=== PATIENT | female | born 1955 | race Caucasian/White ===

== ENCOUNTER 2018-10-04 15:28 | Outpatient (REF) | payer OTHER, SELFPAY ==
--- NOTE | 2018-10-04 14:42 | PAPFT_PTH ---
PATIENT: Jyothi Pan LOC: [facility]#:[id number] AGE/SX: 63/F ROOM: RE10/04/[address]: Valentina Doshi : 1955 BED: DIS: 10/04/2018 SPEC #: [id number] RECD: 10/05/18 13:03 STATUS: LULI RECedric #: [id number] ELIDIA: 10/04/18 14:[address]: Valentina Doshi DEPT: [facility] Cytology RECD BY: Michelle Fregoso ENTERED: 10/05/18 13:04 SP TYPE: PAPFT OTHR DR: Ronaldo Moy Tissues: 1 - CX/ENDOCX FOR PAP SMEARS Procedures: PAP THIN PREP/UVM Screening HPV DNA PROBE Comments: [id number]
[2018-10-04 21:23] LABS: CREATININE 0.98 mg/dL (0.55-1.02); Calcium 9.3 mg/dL (8.5-10.1); Estimated GFR 56.96 (mL/min/1.73m2)
== END 2018-10-04 15:48 ==
LOC: NCHCN 15:28
PROVIDERS: PCP Internal Medicine; Visit Provider Internal Medicine
DX: M81.0 Age-related osteoporosis without current pathological fracture (principal); Z12.4 Encounter for screening for malignant neoplasm of cervix; Z11.51 Encounter for screening for human papillomavirus (HPV)
CPT/HCPCS: 88142; 82310; 82565; 87624

== ENCOUNTER 2019-07-24 14:21 | Outpatient (REF) | payer OTHER, SELFPAY ==
[2019-07-24 22:46] LABS: Calculated LDL 184 mg/dL; Cholesterol 271 mg/dL (50-200); HDL Cholesterol 74 mg/dL (40-60); Magnesium 1.9 mg/dL (1.8-2.4); Triglyceride 69 mg/dL (30-150)
[2019-07-24 22:54] LABS: Hemoglobin A1C 6.1 % (4.5-6.2)
== END 2019-07-24 14:41 ==
LOC: NCHCN 14:21
PROVIDERS: PCP Registered Nurse; Visit Provider Registered Nurse
DX: Z00.00 Encounter for general adult medical examination without abnormal findings (principal); E78.5 Hyperlipidemia, unspecified; M81.0 Age-related osteoporosis without current pathological fracture; K21.9 Gastro-esophageal reflux disease without esophagitis
CPT/HCPCS: 80061; 83036; 83735

== ENCOUNTER 2019-09-10 13:11 | Outpatient (REF) | payer OTHER, SELFPAY ==
--- NOTE | 2019-09-10 09:45 | SKI_PTH ---
PATIENT: Jyothi Pan LOC: [facility]#:[id number] AGE/SX: 64/F ROOM: RE09/10/[address]: Rossy Feldman : 1955 BED: DIS: 09/10/2019 SPEC #: [id number] RECD: 09/11/19 12:49 STATUS: LULI RECedric #: [id number] ELIDIA: 09/10/19 09:[address]: Rossy Feldman DEPT: Surgical Specimen RECD BY: Michelle Fregoso ENTERED: 09/11/19 12:49 SP TYPE: KENDRA DOOLEY DR: Minna Gallardo Tissues: 1 - SKIN BIOPSY(SHAVE/PUNCH) Procedures: SKIN LEVEL 4 Comments: [id number]
== END 2019-09-10 13:31 ==
LOC: NCHCN 13:11
PROVIDERS: PCP Registered Nurse; Visit Provider Family Medicine
DX: L43.9 Lichen planus, unspecified (principal)
CPT/HCPCS: 88305

== ENCOUNTER 2019-12-23 12:10 | Outpatient (REF) | payer OTHER, SELFPAY ==
--- NOTE | 2019-12-23 11:00 | PAPFT_PTH ---
PATIENT: Jyothi Pan LOC: [facility]#:[id number] AGE/SX: 64/F ROOM: RE12/23/[address]: Valentina Doshi : 1955 BED: DIS: 12/23/2019 SPEC #: [id number] RECD: 12/24/19 12:45 STATUS: LULI REQ #: [id number] ELIDIA: 12/23/19 11:[address]: Valentina Doshi DEPT: [facility] Cytology RECD BY: Michelle Fregoso ENTERED: 12/24/19 12:45 SP TYPE: PAPFT OTHR DR: Minna Gallardo Tissues: 1 - CX/ENDOCX FOR PAP SMEARS Procedures: PAP THIN PREP/UVM Screening HPV DNA PROBE Comments: [id number]
== END 2019-12-23 12:30 ==
LOC: NCHCN 12:10
PROVIDERS: PCP Registered Nurse; Visit Provider Internal Medicine
DX: Z12.4 Encounter for screening for malignant neoplasm of cervix (principal); Z11.51 Encounter for screening for human papillomavirus (HPV)
CPT/HCPCS: 88142; 87624

== ENCOUNTER 2020-04-16 12:34 | Outpatient (REF) | payer OTHER, SELFPAY ==
[2020-04-18 00:07] LABS: COVID-19 RT-PCR Result NEGATIVE (Negative)
== END 2020-04-16 12:54 ==
LOC: NCHCN 12:34
PROVIDERS: PCP Registered Nurse; Visit Provider Family Medicine
DX: Z20.828 Contact with and (suspected) exposure to other viral communicable diseases (principal)
CPT/HCPCS: U0003

== ENCOUNTER 2020-12-07 16:38 | Outpatient (REF) | payer OTHER, SELFPAY | END 2020-12-07 16:58 | LOC: NCHCN 16:38 | PROVIDERS: PCP Registered Nurse; Visit Provider Internal Medicine | DX: Z77.011 Contact with and (suspected) exposure to lead (principal) | CPT/HCPCS: 83655 ==

== ENCOUNTER 2021-01-21 12:50 | Outpatient (REF) | payer OTHER, SELFPAY ==
[2021-01-26 12:49] LABS: Helicobacter pylori Ag, Feces Negative (Negative)
== END 2021-01-21 12:51 | disposition home or self-care (01) ==
LOC: NCHCN 12:50
PROVIDERS: PCP Registered Nurse; Visit Provider Internal Medicine
DX: K21.9 Gastro-esophageal reflux disease without esophagitis (principal)
CPT/HCPCS: 87338

== ENCOUNTER 2021-02-15 13:53 | Outpatient (REF) | payer OTHER, SELFPAY ==
[2021-02-15 14:59] LABS: ALT 28 U/L (14-59); AST 20 U/L (15-37); Albumin 3.7 g/dL (3.4-5.0); Alkaline Phosphatase 67 U/L (46-116); Anion Gap 9.2 mmol/L (3-11); BUN 17 mg/dL (7-18); Bilirubin, Total 0.4 mg/dL (0.2-1.0); CO2 28.8 mmol/L (21.0-32.0); CREATININE 1.1 mg/dL (0.55-1.02); Calculated LDL 190 mg/dL (<100); Chloride 104 mmol/L (98-107); Cholesterol 287 mg/dL (<200); Estimated GFR 49.39 (mL/min/1.73m2); Glucose 87 mg/dL (74-106); HDL Cholesterol 81 mg/dL (40-60); Potassium 4.1 mmol/L (3.5-5.1); Sodium 142 mmol/L (136-145); Total Protein 6.9 g/dL (6.4-8.2); Triglyceride 82 mg/dL (<150)
[2021-02-15 15:09] LABS: Hemoglobin A1C 5.9 % (<5.7)
== END 2021-02-15 13:54 | disposition home or self-care (01) ==
LOC: NCHCN 13:53
PROVIDERS: PCP Registered Nurse; Visit Provider Internal Medicine
DX: R73.03 Prediabetes (principal); E78.5 Hyperlipidemia, unspecified; Z86.79 Personal history of other diseases of the circulatory system
CPT/HCPCS: 80053; 80061; 83036

== ENCOUNTER 2021-10-28 21:26 | Outpatient (REF) | payer OTHER, SELFPAY ==
[2021-10-30 12:39] LABS: COVID-19 RT-PCR UVMMC Result Negative (Negative)
== END 2021-10-28 21:27 | disposition home or self-care (01) ==
LOC: NCHCN 21:26
PROVIDERS: PCP Registered Nurse; Visit Provider Internal Medicine
DX: Z20.822 Contact with and (suspected) exposure to COVID-19 (principal)
CPT/HCPCS: U0003

== ENCOUNTER 2022-02-14 21:08 | Outpatient (REF) | payer OTHER, SELFPAY ==
[2022-02-14 21:02] LABS: ESR 11 mm/hr (0-30)
[2022-02-14 21:17] LABS: C-Reactive Protein 0.08 mg/dL (0.0-0.3)
== END 2022-02-14 21:09 | disposition home or self-care (01) ==
LOC: NCHCN 21:08
PROVIDERS: PCP Registered Nurse; Visit Provider Internal Medicine
DX: H53.8 Other visual disturbances (principal)
CPT/HCPCS: 85652; 86140

== ENCOUNTER 2022-06-01 15:53 | Outpatient (REF) | payer OTHER, SELFPAY ==
[2022-06-01 21:17] LABS: Abs Immature Grans 0.06 10^3/uL (0.0-0.06); Absolute Basophil Count 0.08 10^3/uL (0.0-0.2); Absolute Monocyte Count 0.38 10^3/uL (0.1-0.8); Absolute Neutrophil Count 14.56 10^3/uL (1.2-6.7); Basophils % 0.5; Eosinophils % 0.1; HCT 42.9 % (36.0-46.0); HGB 14.2 g/dL (11.2-15.7); Immature Grans % 0.4; Lymphocytes % 4.7; MCH 27.8 pg (27.0-33.0); MCHC 33.1 % (32.0-36.0); MCV 84 fL (80-95); MPV 10.1 fL (8.0-11.0); Monocytes % 2.4; Neutrophils % 91.9; Platelet Count 263 10^3/uL (130-400); RDW 14.9 % (11.7-14.6); RDW-SD 45.8 fL; WBC 15.84 10^3/uL (4.4-10.8)
[2022-06-01 21:18] LABS: Absolute Eosinophil Count 0.02 10^3/uL (0.0-0.7); Absolute Lymphocyte Count 0.74 10^3/uL (1.2-3.4)
[2022-06-01 21:25] LABS: ALT 22 U/L (14-59); AST 17 U/L (15-37); Albumin 3.7 g/dL (3.4-5.0); Alkaline Phosphatase 69 U/L (46-116); Anion Gap 12.7 mmol/L (3-11); BUN 20 mg/dL (7-18); Bilirubin, Total 0.2 mg/dL (0.2-1.0); CO2 24.3 mmol/L (21.0-32.0); CREATININE 1.1 mg/dL (0.55-1.02); Chloride 105 mmol/L (98-107); Estimated GFR 49.25 (mL/min/1.73m2); Glucose 157 mg/dL (74-106); Potassium 3.5 mmol/L (3.5-5.1); Sodium 142 mmol/L (136-145); TSH 0.99 uIU/mL (0.36-3.74); Total Protein 6.7 g/dL (6.4-8.2)
== END 2022-06-01 15:54 | disposition home or self-care (01) ==
LOC: NCHCN 15:53
PROVIDERS: PCP Registered Nurse; Visit Provider Registered Nurse
DX: E78.5 Hyperlipidemia, unspecified (principal); R06.02 Shortness of breath; R73.03 Prediabetes
CPT/HCPCS: 80053; 84443; 85025

== ENCOUNTER 2022-07-14 21:07 | Outpatient (REF) | payer OTHER, SELFPAY ==
[2022-07-14 22:09] LABS: Anion Gap 8.2 mmol/L (3-11); BUN 12 mg/dL (7-18); CO2 29.8 mmol/L (21.0-32.0); Calcium 9.4 mg/dL (8.5-10.1); Chloride 100 mmol/L (98-107); Estimated GFR 60.98 (mL/min/1.73m2); Glucose 154 mg/dL (74-106); Potassium 4.4 mmol/L (3.5-5.1); Sodium 138 mmol/L (136-145)
== END 2022-07-14 21:08 | disposition home or self-care (01) ==
LOC: NCHCN 21:07
PROVIDERS: PCP Registered Nurse; Visit Provider Family Medicine
DX: Z01.818 Encounter for other preprocedural examination (principal)
CPT/HCPCS: 80048; 85027

== ENCOUNTER 2022-07-18 20:24 | Outpatient (REF) | payer OTHER, SELFPAY ==
[2022-07-18 19:09] LABS: HCT 43.7 % (36.0-46.0); HGB 14.2 g/dL (11.2-15.7); MCH 27.7 pg (27.0-33.0); MCHC 32.5 % (32.0-36.0); MCV 85 fL (80-95); MPV 9.7 fL (8.0-11.0); Platelet Count 417 10^3/uL (130-400); RBC 5.13 10^6/uL (3.93-5.22); RDW 14.6 % (11.7-14.6); RDW-SD 45.7 fL; WBC 10.97 10^3/uL (4.4-10.8)
== END 2022-07-18 20:25 | disposition home or self-care (01) ==
LOC: NCHCN 20:24
PROVIDERS: PCP Registered Nurse; Visit Provider Family Medicine
DX: Z01.818 Encounter for other preprocedural examination (principal)
CPT/HCPCS: 85027

== ENCOUNTER 2022-12-23 17:32 | Outpatient (REF) | payer BC, SELFPAY ==
[2022-12-23 14:03] LABS: HCT 43.3 % (36.0-46.0); MCH 27.4 pg (27.0-33.0); MCHC 32.3 % (32.0-36.0); MCV 85 fL (80-95); MPV 10.2 fL (8.0-11.0); Platelet Count 278 10^3/uL (130-400); RBC 5.11 10^6/uL (3.93-5.22); RDW 14.3 % (11.7-14.6); RDW-SD 44.2 fL; WBC 5.93 10^3/uL (4.4-10.8)
[2022-12-23 14:25] LABS: Hemoglobin A1C 5.9 % (<5.7)
[2022-12-23 14:37] LABS: Anion Gap 8.6 mmol/L (3-11); BUN 14 mg/dL (7-18); CO2 27.4 mmol/L (21.0-32.0); CREATININE 0.8 mg/dL (0.55-1.02); Calcium 9.5 mg/dL (8.5-10.1); Calculated LDL 92 mg/dL (<100); Chloride 104 mmol/L (98-107); Cholesterol 189 mg/dL (<200); Estimated GFR 79.71 (mL/min/1.73m2); Glucose 96 mg/dL (74-106); HDL Cholesterol 91 mg/dL (40-60); Potassium 4.3 mmol/L (3.5-5.1); Sodium 140 mmol/L (136-145); Triglyceride 32 mg/dL (<150)
== END 2022-12-23 17:33 | disposition home or self-care (01) ==
LOC: NCHCN 17:32
PROVIDERS: PCP Registered Nurse; Visit Provider Internal Medicine
DX: E78.5 Hyperlipidemia, unspecified (principal); R73.03 Prediabetes; Z00.00 Encounter for general adult medical examination without abnormal findings
CPT/HCPCS: 80048; 80061; 85027; 83036

== ENCOUNTER 2023-02-27 14:54 | Outpatient (REF) | payer BC, SELFPAY ==
--- NOTE | 2023-02-27 14:00 | PAPFT_PTH ---
PATIENT: Jyothi Pan LOC: [facility]#:[id number] AGE/SX: 68/F ROOM: RE02/27/[address]: Valentina Doshi : 1955 BED: DIS: 02/27/2023 SPEC #: [id number] RECD: 02/28/23 12:40 STATUS: LULI RECedric #: [id number] ELIDIA: 02/27/23 14:[address]: Valentina Doshi DEPT: [facility] Cytology RECD BY: Michelle Fregoso ENTERED: 02/28/23 12:40 SP TYPE: PAPFT OTHR DR: Minna Gallardo Tissues: 1 - CX/ENDOCX FOR PAP SMEARS Procedures: PAP THIN PREP/UVM Screening HPV DNA PROBE Comments: [id number]
== END 2023-02-27 14:55 | disposition home or self-care (01) ==
LOC: NCHCN 14:54
PROVIDERS: PCP Registered Nurse; Visit Provider Internal Medicine
DX: Z12.4 Encounter for screening for malignant neoplasm of cervix (principal)
CPT/HCPCS: 88142; 87624